=== PATIENT | male | born 1950 | race Caucasian/White ===

== ENCOUNTER 2017-06-14 16:05 | Emergency (ER) | payer MEDICARE, MEDICAID ==
[2017-06-14] MEDS ORDERED: Sodium Chloride 0.9% 10 ML Syringe FLUSH PRN (16:12)
--- NOTE | 2017-06-14 16:38 | CR ---
Clinical history: 67-year-old male injured left hand (tablesaw). Interpretation: 1. Pronounced soft tissue laceration middle 3 fingers. 2. Associated fragmentation terminal tuft distal phalanx index finger. 3. Complete transection and diastases proximal diaphysis distal phalanx adjacent middle finger (amput ation). 4. Nondisplaced avulsion corner fracture ulnar aspect base of the distal phalanx fourth (ring) finger . 5. 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 6. No sign of other fracture or dislocation left hand or wrist.
[2017-06-14] MEDS ORDERED: Diphtheria,Pertussis(Acell),Tetanus Vaccine 0.5 ML SDV IM ONE (16:46)
[2017-06-14] MEDS ORDERED: ceFAZolin 2 GM in Premix Bag 1 BAG IV ONE (16:54)
[2017-06-14 16:55] LABS: CHLORIDE,CL 103 mmol/L (101-111); SODIUM,NA 140 mmol/L (135-145)
--- NOTE | 2017-06-15 19:18 | EDM.PDOC ---
ED HPI GENERAL MEDICAL PROBLEM - General Chief Complaint: Laceration Stated Complaint: finger on left hand, cut by table saw Time Seen by Provider: 06/14/17 16:10 Source of Information: Reports: Patient, RN History Limitations: Reports: No Limitations - History of Present Illness INITIAL COMMENTS - FREE TEXT/NARRATIVE: Pt presents to the ER with c/o cutting the fingers of his left hand with a table saw. 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 He states he has some pain, but "not terrible". He states he does not go to the doctor, so has no past health history and denies taking any medications. Onset: Today, Sudden Right Hand Pain Score (Numeric/FACES): 7 - Related Data Allergies Allergy/AdvReac Type Severity Reaction Status Date / Time No Known Drug Allergies Allergy Mild Other Verified 06/14/17 16:09 Past Medical History - Past Health History Medical/Surgical History: Denies Medical/Surgical History Social & Family History - Tobacco Use Smoking Status *Q: Never Smoker - Caffeine Use Caffeine Use: Reports: Coffee - Recreational Drug Use Recreational Drug Use: No ED ROS GENERAL - Review of Systems Review Of Systems: ROS reveals no pertinent complaints other than HPI. ED EXAM, SKIN/RASH Exam: See Below Exam Limited By: No Limitations General Appearance: Alert, WD/WN, No Apparent Distress Eye Exam: Bilateral Eye: Normal Inspection Ears: Normal External Exam, Hearing Grossly Normal Nose: Normal Inspection Throat/Mouth: Normal Inspection, Normal Voice, No Airway Compromise Head: Atraumatic, Other Neck: Normal Inspection, Supple, Non-Tender, Full Range of Motion Respiratory/Chest: No Respiratory Distress, Lungs Clear, Normal Breath Sounds, No Accessory Muscle Use, Chest Non-Tender Cardiovascular: Normal Peripheral Pulses, Regular Rate, Rhythm, No Edema, No Gallop, No JVD, No Murmur, No Rub Peripheral Pulses: 2+: Radial (L), Radial (R) GI/Abdominal: Normal Bowel Sounds, Soft, Non-Tender (Male) Exam: Deferred Rectal (Males) Exam: Deferred Back Exam: Normal Inspection, Full Range of Motion Extremities: Other (See radiology report of left hand) Neurological: Alert, Oriented, Normal Cognition, Normal Gait, No Motor/Sensory Deficits Psychiatric: Normal Affect, Normal Mood Skin: Warm, Dry, Intact, Normal Color, No Rash Lymphatic: No Adenopathy Course - Vital Signs Last Recorded V/S: Last Vital Signs Temp 97.9 F 06/14/17 16:09 Pulse 88 06/14/17 16:41 Resp 18 06/14/17 16:41 BP 129/88 06/14/17 16:41 Pulse Ox 90 L 06/14/17 16:09 - Orders/Labs/Meds Labs: Laboratory Tests 06/14/17 06/14/17 Range/Units 16:29 16:29 WBC 11.9 H (5.0-10.0) 10^3/uL RBC 5.67 (4.6-6.2) 10^6/uL Hgb 16.6 (14.0-18.0) g/dL Hct 50.0 (40.0-54.0) % MCV 88.2 (80-100) fL MCH 29.3 (27.0-34.0) pg MCHC 33.2 (33.0-35.0) g/dL Plt Count 218 (150-450) 10^3/uL Neut % (Auto) 64.4 (42.2-75.2) % Lymph % (Auto) 22.0 (20.5-50.1) % [place] % (Auto) 11.4 H (2-8) % Eos % (Auto) 1.7 (1.0-3.0) % Baso % (Auto) 0.5 (0.0-1.0) % Sodium 140 (135-145) mmol/L Potassium 3.8 (3.6-5.0) mmol/L Chloride 103 (101-111) mmol/L Carbon Dioxide 26.0 (21.0-31.0) mmol/L Anion Gap 14.8 BUN 19 H (7-18) mg/dL Creatinine 1.1 (0.6-1.3) mg/dL Est Cr Clr Drug Dosing 69.41 mL/min Estimated GFR (MDRD) > 60 BUN/Creatinine Ratio 17.27 Glucose 113 H (74-105) mg/dL Calcium 9.0 (8.4-10.2) mg/dl Total Bilirubin 0.6 (0.2-1.0) mg/dL AST 23 (10-42) IU/L ALT 22 (10-60) IU/L Alkaline Phosphatase 89 (42-121) IU/L Total Protein 7.6 (6.7-8.2) g/dl Albumin 3.9 (3.2-5.5) g/dl Globulin 3.7 Albumin/Globulin Ratio 1.05 Meds: Medications Discontinued Medications Generic Name Dose Route Start Last Admin Trade Name Freq PRN Reason Stop Dose Admin Diphtheria/Tetanus/Acell Pertussis 0.5 ml 06/14/17 16:46 06/14/17 17:13 Adacel IM 06/14/17 16:47 0.5 ml .ONCE ONE Administration Cefazolin Sodium/Dextrose 2 gm 50 mls @ 100 mls/hr 06/14/17 16:54 06/14/17 17 :13 / Premix IV 06/14/17 17:23 100 mls/hr ONETIME ONE Administration Sodium Chloride 10 ml 06/14/17 16:12 06/14/17 16:37 Saline Flush FLUSH 10 ml ASDIRECTED PRN Administration Keep Vein Open - Radiology Interpretation Free Text/Narrative:: Left hand x-ray: 1. Pronounced soft tissue laceration middle 3 fingers 2. Associated fragmentation terminal tuft distal phalanx index finger 3. Complete transection and diastases proximal diaphysis distal phalanx adjacent middle finger (amputation) 4. Non displaced avulsion corner fracture ulnar aspect base of the distal phalanx fourth (ring) finger 5. 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 Laceration of left hand with tendon involvement including fingers Qualifiers: Encounter type: initial encounter Qualified Code(s): S61.412A - Laceration without foreign body of left hand, initial encounter; S61.219A - Laceration without foreign body of unspecified finger without damage to nail, initial encounter; S61.219A - Laceration without foreign body of unspecified finger without damage to nail, initial encounter; S66.922A - Laceration of unspecified muscle, fascia and tendon at wrist and hand level, left hand, initial encounter ; S66.922A - Laceration of unspecified muscle, fascia and tendon at wrist and hand level, left hand, initial encounter - Discharge Information Referrals: PCP,None [Primary Care Provider] - Forms: ED Department Discharge, Interfacility Transfer [facility]
== END 2017-06-14 17:28 ==
LOC: DL.ED 16:05
DX: S68.113A Complete traumatic metacarpophalangeal amputation of left middle finger, initial encounter (principal); S62.665A Nondisplaced fracture of distal phalanx of left ring finger, initial encounter for closed fracture; S66.922A Laceration of unspecified muscle, fascia and tendon at wrist and hand level, left hand, initial encounter; Z23 Encounter for immunization; W27.0XXA Contact with workbench tool, initial encounter
CPT/HCPCS: 36415; 73120; 80053; 85025; 90471; 90715; 99284; J0690; J7050; 99285

== ENCOUNTER 2020-07-24 12:21 | Emergency (ER) | payer MEDICAID, MEDICARE ==
--- NOTE | 2020-07-24 12:45 | EDM.PDOC ---
ED HPI GENERAL MEDICAL PROBLEM - General Chief Complaint: Neuro Symptoms/Deficits Stated Complaint: STROKE Time Seen by Provider: 07/24/20 12:45 Source of Information: Reports: Patient, RN, RN Notes Reviewed History Limitations: Reports: No Limitations - History of Present Illness INITIAL COMMENTS - FREE TEXT/NARRATIVE: Patient presents to the ED via personal vehicle from [facility] with complaints of right upper extremity weakness. The patient reports the weakness began two days ago and has maintained since that time. He has never experienced weakness like this before, and noticed it when he was unable to properly hold onto a pen. He denies history of stroke or cardiac events. He is currently taking HCTZ 25mg , Amiodarone 5mg, and Lisinopril 10mg. He denies fever, shaking chills, recent illness, headache, vision changes, chest pain/pressure, palpitations, shortness of breath, abdominal pain, nausea, vomiting, diarrhea, or dysuria. He denies a history of tobacco, alcohol, or recreational drug use. - Related Data Allergies Allergy/AdvReac Type Severity Reaction Status Date / Time No Known Drug Allergies Allergy Mild Other Verified 06/14/17 16:09 Home Meds: Home Meds Ibuprofen 400 mg PO Q6HR PRN 07/24/20 [History] amLODIPine [Norvasc] 5 mg PO DAILY 07/24/20 [History] hydroCHLOROthiazide [Hydrochlorothiazide] 25 mg PO DAILY 07/24/20 [History] lisinopriL [Lisinopril] 5 mg PO DAILY 07/24/20 [History] Past Medical History - Past Health History Medical/Surgical History: Denies Medical/Surgical History Social & Family History - Caffeine Use Caffeine Use: Reports: Coffee ED ROS GENERAL - Review of Systems Review Of Systems: Comprehensive ROS is negative, except as noted in HPI. ED EXAM, NEURO - Physical Exam Exam: See Below Exam Limited By: No Limitations General Appearance: Alert, WD/WN, No Apparent Distress Eye Exam: Bilateral Eye: EOMI, Normal Inspection, PERRL Ears: Normal External Exam, Normal Canal, Hearing Grossly Normal, Normal TMs Nose: Normal Inspection. No: Nasal Tenderness, Nasal Swelling, Nasal Drainage Throat/Mouth: Normal Inspection, Normal Lips. No: Normal Oropharynx (Dry mucous membranes), Normal Voice, No Airway Compromise Head Exam: Atraumatic, Normocephalic Neck: Normal Inspection, Supple, Non-Tender, Full Range of Motion. No: Lymphadenopathy (L), Lymphadenopathy (R) Respiratory/Chest: No Respiratory Distress, Lungs Clear, Normal Breath Sounds, No Accessory Muscle Use, Chest Non-Tender Cardiovascular: Normal Peripheral Pulses, No Edema, No Gallop, No JVD, No Murmur, No Rub, Extra Beats, Irregularly Irregular GI/Abdominal: Normal Bowel Sounds, Soft, Non-Tender, No Distention, No Mass, Pelvis Stable (Male) Exam: Deferred Rectal (Males) Exam: Deferred Neurological: Alert, Normal Mood/Affect, Normal Dorsiflexion, CN II-XII Intact, Normal Plantar Flexion, Normal Gait, Normal Reflexes, No Motor/Sensory Deficits, Oriented x 3, Withdraws to Pain, Straight Leg Raise (L), Straight Leg Raise (R). No: Abnormal Finger to Nose, Abnormal Sensation, Abnormal Light Touch, Abnormal Motor, Abnormal Pin Prick, Abn 2 Pt Discrimination, Tremor, Saddle Anesthesia Back Exam: Normal Inspection, Full Range of Motion. No: CVA Tenderness (L), CVA Tenderness (R) Extremities: Normal Inspection, Normal Range of Motion, Non-Tender, No Pedal Edema, Normal Capillary Refill Psychiatric: Normal Affect, Normal Mood Skin Exam: Warm, Dry, Intact, Other (Face flushed). No: Ecchymosis, Erythema, Mottled, Pallor, Petechiae #1 Interpretation EKG Date: 07/24/20 Time: 12:33 Rhythm: Other (Sinus arrhythmia) Rate (Beats/Min): 78 Ramer: LAD-Left Ramer Deviation P-Wave: Present QRS: Normal ST-T: Normal QT: Normal Comparison: NA - No Prior EKG EKG Interpretation Comments: SA; Multiform PVCs; No evidence of acute ischemia Course - Vital Signs Last Recorded V/S: Last Vital Signs Temp 97.7 F 07/24/20 12:31 Pulse 83 07/24/20 12:31 Resp 16 07/24/20 12:31 BP 136/69 07/24/20 12:31 Pulse Ox 90 L 07/24/20 12:31 - Orders/Labs/Meds Labs: Laboratory Tests 07/24/20 07/24/20 07/24/20 Range/Units 12:32 12:32 12:32 WBC 11.1 H (5.0-10.0) 10^3/uL RBC 5.54 (4.6-6.2) 10^6/uL Hgb 17.2 (14.0-18.0) g/dL Hct 49.3 (40.0-54.0) % MCV 89.0 (80-100) fL MCH 31.0 (27.0-34.0) pg MCHC 34.9 (33.0-35.0) g/dL Plt Count 193 (150-450) 10^3/uL Neut % (Auto) 71.1 (42.2-75.2) % Lymph % (Auto) 16.8 L (20.5-50.1) % [place] % (Auto) 10.3 H (2-8) % Eos % (Auto) 1.3 (1.0-3.0) % Baso % (Auto) 0.5 (0.0-1.0) % Sodium 137 (136-145) mmol/L Potassium 3.9 (3.5-5.1) mmol/L Chloride 98 (98-107) mmol/L Carbon Dioxide 26 (21-32) mmol/L Anion Gap 16.9 H (7-13) mEq/L BUN 15 (7-18) mg/dL Creatinine 1.06 (0.70-1.30) mg/dL Est Cr Clr Drug Dosing 69.06 mL/min Estimated GFR (MDRD) > 60 BUN/Creatinine Ratio 14.2 (No establ ref range) Glucose 107 H (74-99) mg/dL Calcium 8.8 (8.5-10.1) mg/dL Magnesium 2.1 (1.8-2.4) mg/dL Total Bilirubin 0.5 (0.2-1.0) mg/dL AST 20 (15-37) U/L ALT 26 (16-63) U/L Alkaline Phosphatase 101 (46-116) U/L Troponin I < 0.017 (0.000-0.056) ng/mL B-Natriuretic Peptide 96 (0-100) pg/ml Total Protein 8.3 H (6.4-8.2) g/dL Albumin 3.7 (3.4-5.0) g/dL Globulin 4.6 Albumin/Globulin Ratio 0.8 Urine Color Yellow (YELLOW) Urine Appearance Clear (CLEAR) Urine pH 5.5 (5.0-9.0) Ur Specific [place] 1.025 (1.005-1.030) Urine Protein Negative (NEGATIVE) Urine Glucose (UA) Negative (NEGATIVE) Urine Ketones Negative (NEGATIVE) Urine Occult Blood Negative (NEGATIVE) Urine Nitrite Negative (NEGATIVE) Urine Bilirubin Negative (NEGATIVE) Urine Urobilinogen 0.2 (0.2-1.0) mg/dL Ur Leukocyte Esterase Negative (NEGATIVE) - Re-Assessments/Exams Free Text/Narrative Re-Assessment/Exam: 07/25/20 CT head unremarkable for acute processes. Sinusitis observed on CT; patient continues to deny pain to the area and physical exam was unremarkable. Patient instructed to sleep with humidified air at night and avoid nasal sprays. Patient instructed to follow up with primary care provider in 3-5 days regarding today's visit, or sooner as warranted. Departure - Departure Time of Disposition: 13:50 Disposition: Home, Self-Care 01 Condition: Good Clinical Impression: Right sided weakness Sinusitis Qualifiers: Sinusitis location: unspecified location Chronicity: acute Recurrence: non- recurrent Qualified Code(s): J01.90 - Acute sinusitis, unspecified - Discharge Information *PRESCRIPTION DRUG MONITORING PROGRAM REVIEWED*: Not Applicable *COPY OF PRESCRIPTION DRUG MONITORING REPORT IN PATIENT ANT: Not Applicable Instructions: Sinusitis, Adult, [id number] Forms: ED Department Discharge Additional Instructions: 1.) Follow up with your primary care provider regarding today's visit; your CT scan was clear for acute neurological processes. 2.) You have inflammation within your sinuses, sleep with humidified air at night. 3.) Return to the emergency room with any progressive weakness, slurred speech, or facial droop. Sepsis Event Note (ED) - Evaluation Sepsis Screening Result: No Definite Risk
[2020-07-24 13:06] LABS: ANION GAP 16.9 mEq/L (7-13); CHLORIDE,CL 98 mmol/L (98-107); SODIUM,NA 137 mmol/L (136-145)
--- NOTE | 2020-07-24 13:24 | CT ---
EXAMINATION: Head wo Cont SEX: Male AGE: 70 years CLINICAL HISTORY: 70-year-old 300 pound male with 2 days of right extremity weakness; Slurred speech. No comparison CT or MRI exams of the head immediately available at this institution. Scan technique: Volume acquisition of data emergency unenhanced CT scan of the head and brain obtained with the patient lying supine on the Siemens multislice scanner [place], [place]. All data archived in the PACS system for storage, reformatting axial/sagittal/coronal planes and study (bone/soft tissue windows). Interpretation: 1. Dense opacification of the left maxillary antrum and ipsilateral ethmoid sinuses. Paranasal and mastoid sinuses symmetrically pneumatized and otherwise clear. No foreign bodies. 2. Uniformly thick bony calvarium. No sign of pathologic skeletal lesion, skull fracture, underlying brain contusion or acute extracerebral/intracranial epidural or subdural hematoma. Note: Subtle, focal, extracerebral increased signal frontal parietal region on the right (coronal #19; axial #20) suggesting remote or old subdural bleed. 3. *Scattered areas of decreased attenuation throughout the periventricular white matter, particularly right cerebral hemisphere, characteristic of microvascular ischemic disease (isolated lacunar infarct anterior limb internal capsule, basal ganglia on the right and ischemic changes ipsilateral external capsule). 4. No supratentorial or posterior fossa mass lesion. Underlying mirror-image normal ventricular system. 5. No sign of acute intracerebral, intraventricular or subarachnoid bleed. 6. Cerebellum and brainstem unremarkable. CONCLUSION: Sinusitis. Multi-infarct ischemic disease. No intracranial mass, hydrocephalus or acute intracranial bleed.
== END 2020-07-24 13:59 | disposition home or self-care (01) ==
LOC: DL.ED 12:21
DX: R53.1 Weakness (principal); J01.90 Acute sinusitis, unspecified; I49.8 Other specified cardiac arrhythmias
CPT/HCPCS: 36415; 70450; 80053; 81003; 83735; 83880; 84484; 85025; 93005; 99285-25

== ENCOUNTER 2023-07-21 15:18 | Emergency (ER) | payer OTHER, MEDICARE ==
[2023-07-21 15:47] LABS: BASOPHILS PERCENT AUTO 0.4 % (0.0-1.0); EOSINOPHILS PERCENT AUTO 0.4 % (1.0-3.0); HEMATOCRIT 51.5 % (40.0-54.0); HEMOGLOBIN 17.1 g/dL (14.0-18.0); LYMPHOCYTES PERCENT AUTO 6.8 % (20.5-50.1); MEAN CORPUSCULAR HGB CONC 33.2 g/dL (33.0-35.0); MEAN CORPUSCULAR VOLUME 90.4 fL (80-100); MONOCYTES PERCENT AUTO 10.6 % (2-8); NEUTROPHILS PERCENT AUTO 81.8 % (42.2-75.2); PLATELET COUNT,PLT 227 10^3/uL (150-450); WHITE BLOOD CELL COUNT,WBC 15.4 10^3/uL (5.0-10.0)
[2023-07-21] MEDS: Sodium Chloride 0.9% 1,000 ML IV ONE (15:59)
[2023-07-21] MEDS: Sodium Chloride 0.9% 10 ML Syringe FLUSH PRN (15:59)
[2023-07-21 16:10] LABS: ALBUMIN 3.1 g/dL (3.4-5.0); ANION GAP 12.6 mEq/L (7-13); BILIRUBIN TOTAL 0.4 mg/dL (0.2-1.0); BUN/CREATININE RATIO 16.9 (No establ ref range); C-REACTIVE PROTEIN 1.13 ng/dL (<=0.50); CREATININE 1.3 mg/dL (0.70-1.30); EST CRCL DRUG DOSING (CG) 53.9 mL/min; MAGNESIUM 1.8 mg/dL (1.8-2.4); POTASSIUM,K 3.6 mmol/L (3.5-5.1); TSH ULTRASENSITIVE 2.55 uIU/mL (0.36-3.74)
[2023-07-21 16:13] LABS: A/G RATIO 0.79
[2023-07-21 16:18] LABS: LACTIC ACID 1.8 mmol/L (0.4-2.0)
[2023-07-21 16:34] LABS: EOSINOPHILS PERCENT MAN 1 % (1-3); LYMPHOCYTES PERCENT MAN 9 % (20-50); MONOCYTES PERCENT MAN 5 % (2-8); SEG NEUTROPHILS PERCENT MAN 85 % (42-75)
[2023-07-21] MEDS: Iopamidol 755 Mg/ML 100 ML Bottle IVPUSH ONE (16:36)
[2023-07-21 16:48] LABS: CORONAVIRUS COVID-19 NAA NEGATIVE (NEGATIVE); INFLUENZA A NAA NEGATIVE (NEGATIVE); INFLUENZA B NAA NEGATIVE (NEGATIVE)
[2023-07-21 17:09] LABS: APPEARANCE,URINE CLEAR (CLEAR); BILIRUBIN,URINE NEGATIVE (NEGATIVE); COLOR,URINE YELLOW (YELLOW); GLUCOSE,URINE NEGATIVE (NEGATIVE); KETONES,URINE NEGATIVE (NEGATIVE); LEUKOCYTE ESTERASE,URINE NEGATIVE (NEGATIVE); NITRITE,URINE NEGATIVE (NEGATIVE); OCCULT BLOOD,URINE NEGATIVE (NEGATIVE); PROTEIN,URINE 100 (NEGATIVE); UROBILINOGEN,URINE 0.2 mg/dL (0.2-1.0)
[2023-07-21 17:18] LABS: BACTERIA,URINE FEW /HPF (0-FEW/HPF); EPITHELIAL CELLS,URINE RARE /HPF (NOT SEEN); MUCUS,URINE FEW /LPF (NOT SEEN); RBC,URINE 0-5 /HPF (0-5); WBC,URINE 0-5 /HPF (0-5/HPF)
[2023-07-21] MEDS: Rivaroxaban 10 MG Tab PO ONE (17:44)
[2023-07-21] MEDS: Diltiazem 25 MG/5 ML SDV IVPUSH ONE (17:44)
== END 2023-07-21 18:24 | disposition home or self-care (01) ==
LOC: DL.ED 15:18
DX: I48.92 Unspecified atrial flutter (principal); I10 Essential (primary) hypertension; Z79.899 Other long term (current) drug therapy; Z20.822 Contact with and (suspected) exposure to COVID-19; E66.01 Morbid (severe) obesity due to excess calories; Z68.41 Body mass index [BMI] 40.0-44.9, adult
CPT/HCPCS: 0240U; 36415; 71275; 80053; 81001; 83605; 83735; 83880; 84443; 84484; 85025; 86140; 93005; 93010; 96374; 99284; 99285-25; A9270-GY; J3490; J7030; Q9967

== ENCOUNTER 2023-07-31 17:54 | Emergency (ER) | payer OTHER ==
[2023-07-31] MEDS ORDERED: Sodium Chloride 0.9% 10 ML Syringe FLUSH PRN (18:10)
[2023-07-31 18:20] LABS: BASOPHILS PERCENT AUTO 0.2 % (0.0-1.0); HEMATOCRIT 52.2 % (40.0-54.0); HEMOGLOBIN 16.8 g/dL (14.0-18.0); LYMPHOCYTES PERCENT AUTO 4.5 % (20.5-50.1); MEAN CORPUSCULAR HEMOGLOBIN 29.7 pg (27.0-34.0); MEAN CORPUSCULAR HGB CONC 32.2 g/dL (33.0-35.0); MEAN CORPUSCULAR VOLUME 92.2 fL (80-100); MONOCYTES PERCENT AUTO 8.2 % (2-8); NEUTROPHILS PERCENT AUTO 87.1 % (42.2-75.2); PLATELET COUNT,PLT 198 10^3/uL (150-450); RED BLOOD CELL COUNT 5.66 10^6/uL (4.6-6.2); WHITE BLOOD CELL COUNT,WBC 21.1 10^3/uL (5.0-10.0)
[2023-07-31] MEDS ORDERED: Metoprolol Tartrate 5 MG/5 ML SDV IVPUSH ONE (18:23)
[2023-07-31] MEDS ORDERED: Digoxin 500 MCG/2 ML Amp IVPUSH ONE (18:33)
[2023-07-31 18:38] LABS: INR 1.2 (0.9-1.2); PROTHROMBIN TIME 12.7 SEC (9.0-12.0); PTT,PARTIAL THROMBOPLSTIN TIME 28.2 SEC (22.0-34.0)
[2023-07-31 18:41] LABS: ALBUMIN 3.1 g/dL (3.4-5.0); ANION GAP 13.4 mEq/L (7-13); BILIRUBIN TOTAL 0.6 mg/dL (0.2-1.0); BUN/CREATININE RATIO 11.9 (No establ ref range); C-REACTIVE PROTEIN 0.75 ng/dL (<=0.50); CALCIUM 8.7 mg/dL (8.5-10.1); CREATININE 2.27 mg/dL (0.70-1.30); EST CRCL DRUG DOSING (CG) 30.87 mL/min; MAGNESIUM 1.6 mg/dL (1.8-2.4); POTASSIUM,K 3.4 mmol/L (3.5-5.1); PROTEIN TOTAL,TP 6.6 g/dL (6.4-8.2)
[2023-07-31 18:42] LABS: A/G RATIO 0.89
[2023-07-31 18:45] LABS: LACTIC ACID 3.8 mmol/L (0.4-2.0)
[2023-07-31] MEDS ORDERED: Sodium Chloride 0.9% 1,000 ML IV ONE (18:46)
[2023-07-31] MEDS ORDERED: Heparin Sodium 5,000 Units/ML Vial IVPUSH ONE (18:55)
[2023-07-31] MEDS ORDERED: Heparin Sodium/0.45% NaCl 25,000 UNITS/500 ML BAG IV SCH (19:00)
== END 2023-07-31 21:20 ==
LOC: DL.ED 17:54
DX: I21.4 Non-ST elevation (NSTEMI) myocardial infarction (principal); I48.91 Unspecified atrial fibrillation; I10 Essential (primary) hypertension; Z79.899 Other long term (current) drug therapy
CPT/HCPCS: 36415; 71045; 80053; 83605; 83735; 83880; 84484; 85025; 85610; 85730; 86140; 93005; 93010; 96365; 96366; 96375; 99285; 99285-25; J1160; J1644; J3490; J7030

== ENCOUNTER 2024-11-03 09:08 | Emergency (ER) | payer OTHER, MEDICARE ==
[2024-11-03] MEDS ORDERED: Sodium Chloride 0.9% 10 ML Syringe FLUSH PRN ×2 (09:21)
[2024-11-03 09:28] LABS: BASOPHILS PERCENT AUTO 0.2 % (0.0-1.0); EOSINOPHILS PERCENT AUTO 1.1 % (1.0-3.0); HEMATOCRIT 48.7 % (40.0-54.0); HEMOGLOBIN 15.4 g/dL (14.0-18.0); LYMPHOCYTES PERCENT AUTO 18.9 % (20.5-50.1); MEAN CORPUSCULAR HEMOGLOBIN 28.4 pg (27.0-34.0); MEAN CORPUSCULAR HGB CONC 31.6 g/dL (33.0-35.0); MEAN CORPUSCULAR VOLUME 89.9 fL (80-100); MONOCYTES PERCENT AUTO 12.1 % (2-8); NEUTROPHILS PERCENT AUTO 67.7 % (42.2-75.2); PLATELET COUNT,PLT 186 10^3/uL (150-450); RED BLOOD CELL COUNT 5.42 10^6/uL (4.6-6.2); WHITE BLOOD CELL COUNT,WBC 14.3 10^3/uL (5.0-10.0)
[2024-11-03 09:37] LABS: INR 1.8 (0.9-1.2); PROTHROMBIN TIME 18.3 SEC (9.0-12.0)
[2024-11-03] MEDS: Diltiazem 25 MG/5 ML SDV IVPUSH ONE ×2 (09:37→10:45)
[2024-11-03] MEDS: Diltiazem 125 MG in Sodium Chloride 0.9% 100 ML IV SCH (09:42)
[2024-11-03 09:47] LABS: ALANINE AMINOTRANSFERASE,ALT 20 U/L (16-63); ALBUMIN 3.1 g/dL (3.4-5.0); ALKALINE PHOSPHATASE 108 U/L (46-116); ANION GAP 13.2 mEq/L (7-13); ASPARTATE AMNIOTRANSFERASE,AST 12 U/L (15-37); BILIRUBIN TOTAL 0.5 mg/dL (0.2-1.0); BLOOD UREA NITROGEN,BUN 24 mg/dL (7-18); BUN/CREATININE RATIO 14.8 (No establ ref range); CALCIUM 9.1 mg/dL (8.5-10.1); CARBON DIOXIDE,CO2 29 mmol/L (21-32); CHLORIDE,CL 105 mmol/L (98-107); CREATININE 1.62 mg/dL (0.70-1.30); GLUCOSE RANDOM 143 mg/dL (70-99); POTASSIUM,K 4.2 mmol/L (3.5-5.1); PROTEIN TOTAL,TP 6.9 g/dL (6.4-8.2); SODIUM,NA 143 mmol/L (136-145)
[2024-11-03 09:49] LABS: A/G RATIO 0.82; ESTIMATED GFR 44 mL/min (>=60)
[2024-11-03] MEDS: Sodium Chloride 0.9% 500 ML IV SCH (11:12)
[2024-11-03] MEDS: Propofol 200 MG/20 ML SDV IVPUSH ONE (11:15)
== END 2024-11-03 12:04 | disposition home or self-care (01) ==
LOC: DL.ED 09:08
DX: I48.91 Unspecified atrial fibrillation (principal); Z79.899 Other long term (current) drug therapy
CPT/HCPCS: 36415; 71045; 80053; 84484; 85025; 85610; 92960; 93005; 93010; 96365; 96366; 99285; J2704; J3490; J7030

== ENCOUNTER 2024-11-25 10:09 | Emergency (ER) | payer MEDICARE, OTHER ==
[2024-11-25 10:53] LABS: BASOPHILS PERCENT AUTO 0.2 % (0.0-1.0); EOSINOPHILS PERCENT AUTO 1.5 % (1.0-3.0); HEMATOCRIT 46.5 % (40.0-54.0); HEMOGLOBIN 14.8 g/dL (14.0-18.0); LYMPHOCYTES PERCENT AUTO 14.4 % (20.5-50.1); MEAN CORPUSCULAR HEMOGLOBIN 28.2 pg (27.0-34.0); MEAN CORPUSCULAR HGB CONC 31.8 g/dL (33.0-35.0); MEAN CORPUSCULAR VOLUME 88.7 fL (80-100); MONOCYTES PERCENT AUTO 9.3 % (2-8); NEUTROPHILS PERCENT AUTO 74.6 % (42.2-75.2); PLATELET COUNT,PLT 203 10^3/uL (150-450); RED BLOOD CELL COUNT 5.24 10^6/uL (4.6-6.2); WHITE BLOOD CELL COUNT,WBC 12.2 10^3/uL (5.0-10.0)
[2024-11-25] MEDS: Amiodarone 150 MG/100 ML 150 MG in Premix Bag 1 BAG IV ONE (11:07)
[2024-11-25 11:09] LABS: ANION GAP 14.9 mEq/L (7-13); BLOOD UREA NITROGEN,BUN 18 mg/dL (7-18); CARBON DIOXIDE,CO2 29 mmol/L (21-32); CHLORIDE,CL 104 mmol/L (98-107); CREATININE 1.27 mg/dL (0.70-1.30); ESTIMATED GFR 59 mL/min (>=60); GLUCOSE RANDOM 206 mg/dL (70-99); MAGNESIUM 1.9 mg/dL (1.8-2.4); POTASSIUM,K 3.9 mmol/L (3.5-5.1); SODIUM,NA 144 mmol/L (136-145)
[2024-11-25] MEDS: fentaNYL 100 MCG/2 ML SDV IVPUSH ONE (11:12)
[2024-11-25] MEDS: Amiodarone 360 MG/200 ML 360 MG/200 ML BAG IV ONE (11:16)
[2024-11-25] MEDS: fentaNYL 100 MCG/2 ML SDV ONE (11:43)
[2024-11-25] MEDS: Sodium Chloride 0.9% 1,000 ML IV ONE (12:07)
[2024-11-25] MEDS: Magnesium Sulf/Wat 2 GM/50 mL 2 GM in Premix Bag 1 BAG IV ONE (12:35)
== END 2024-11-25 14:15 ==
LOC: DL.ED 10:09
DX: I48.91 Unspecified atrial fibrillation (principal); Z79.899 Other long term (current) drug therapy; Z79.1 Long term (current) use of non-steroidal anti-inflammatories (NSAID)
CPT/HCPCS: 36415; 80048; 83605; 83735; 84484; 85025; 92960; 93010; 96365; 96366; 96368; 96375; 99285; 99291; J0283; J3010; J3475; J7030

== ENCOUNTER 2025-02-26 21:49 | Observation (INO) | payer MEDICARE, OTHER ==
[2025-02-26] MEDS ORDERED: Sodium Chloride 0.9% 10 ML Syringe FLUSH PRN (22:30)
[2025-02-26 22:57] LABS: BASOPHILS PERCENT AUTO 0.4 % (0.0-1.0); EOSINOPHILS PERCENT AUTO 1.0 % (1.0-3.0); LYMPHOCYTES PERCENT AUTO 13.6 % (20.5-50.1); MONOCYTES PERCENT AUTO 12.1 % (2-8); NEUTROPHILS PERCENT AUTO 72.9 % (42.2-75.2); PLATELET COUNT,PLT 228 10^3/uL (150-450); RED BLOOD CELL COUNT 5.74 10^6/uL (4.6-6.2); WHITE BLOOD CELL COUNT,WBC 13.9 10^3/uL (5.0-10.0)
[2025-02-26 23:10] LABS: APPEARANCE,URINE CLEAR (CLEAR); GLUCOSE,URINE 500 (NEGATIVE); OCCULT BLOOD,URINE NEGATIVE (NEGATIVE)
[2025-02-26 23:16] LABS: INR 1.0 (0.9-1.2); PTT,PARTIAL THROMBOPLSTIN TIME 30.9 SEC (22.0-34.0)
[2025-02-26 23:17] LABS: B-TYPE NATRIURETIC PEPTIDE,BNP 180.0 pg/ml (0-100)
[2025-02-26 23:20] LABS: ALANINE AMINOTRANSFERASE,ALT 15.0 U/L (16-63); ASPARTATE AMNIOTRANSFERASE,AST 11.0 U/L (15-37); BILIRUBIN TOTAL 0.3 mg/dL (0.2-1.0); BLOOD UREA NITROGEN,BUN 23.0 mg/dL (7-18); CARBON DIOXIDE,CO2 32.0 mmol/L (21-32); CHLORIDE,CL 105.0 mmol/L (98-107); CREATININE 1.48 mg/dL (0.70-1.30); EST CRCL DRUG DOSING (CG) 46.64 mL/min; GLUCOSE RANDOM 108.0 mg/dL (70-99); POTASSIUM,K 4.0 mmol/L (3.5-5.1); PROTEIN TOTAL,TP 7.0 g/dL (6.4-8.2); SODIUM,NA 142.0 mmol/L (136-145)
[2025-02-26 23:21] LABS: LACTIC ACID 1.2 mmol/L (0.4-2.0)
[2025-02-26 23:22] LABS: A/G RATIO 0.79; ESTIMATED GFR 49.0 mL/min (>=60)
[2025-02-26 23:29] LABS: EPITHELIAL CELLS,URINE FEW /HPF (NOT SEEN)
[2025-02-27] MEDS ORDERED: Propofol 200 MG/20 ML SDV IV ONE (00:11)
[2025-02-27] MEDS: fentaNYL 100 MCG/2 ML SDV IVPUSH ONE (00:51)
[2025-02-27] MEDS: Midazolam 1 MG/ML 2 ML SDV IVPUSH ONE (00:52)
[2025-02-27 06:12] LABS: BASOPHILS PERCENT AUTO 0.2 % (0.0-1.0); EOSINOPHILS PERCENT AUTO 1.4 % (1.0-3.0); LYMPHOCYTES PERCENT AUTO 18.3 % (20.5-50.1); MONOCYTES PERCENT AUTO 12.4 % (2-8); NEUTROPHILS PERCENT AUTO 67.7 % (42.2-75.2); PLATELET COUNT,PLT 191 10^3/uL (150-450); RED BLOOD CELL COUNT 5.29 10^6/uL (4.6-6.2); WHITE BLOOD CELL COUNT,WBC 12.5 10^3/uL (5.0-10.0)
[2025-02-27 06:40] LABS: ALANINE AMINOTRANSFERASE,ALT 16.0 U/L (16-63); ASPARTATE AMNIOTRANSFERASE,AST 10.0 U/L (15-37); BILIRUBIN TOTAL 0.4 mg/dL (0.2-1.0); BLOOD UREA NITROGEN,BUN 22.0 mg/dL (7-18); CARBON DIOXIDE,CO2 35.0 mmol/L (21-32); CREATININE 1.44 mg/dL (0.70-1.30); EST CRCL DRUG DOSING (CG) 47.93 mL/min; GLUCOSE RANDOM 103.0 mg/dL (70-99); PROTEIN TOTAL,TP 6.3 g/dL (6.4-8.2); T4 FREE 1.2 ng/dL (0.76-1.46); TSH ULTRASENSITIVE 2.09 uIU/mL (0.36-3.74)
[2025-02-27 06:46] LABS: CHLORIDE,CL 107.0 mmol/L (98-107); POTASSIUM,K 3.8 mmol/L (3.5-5.1); SODIUM,NA 141.0 mmol/L (136-145)
[2025-02-27 06:51] LABS: A/G RATIO 0.75; ESTIMATED GFR 51.0 mL/min (>=60)
== END 2025-02-27 09:25 | disposition home or self-care (01) ==
LOC: DL.ED 21:49 → DL.MS 02-27 01:42
PROVIDERS: ADMIT Internal Medicine; ATTEND Internal Medicine
DX: J96.01 Acute respiratory failure with hypoxia (principal); G47.33 Obstructive sleep apnea (adult) (pediatric); I48.91 Unspecified atrial fibrillation; I10 Essential (primary) hypertension; E11.9 Type 2 diabetes mellitus without complications; I25.10 Atherosclerotic heart disease of native coronary artery without angina pectoris; Z95.5 Presence of coronary angioplasty implant and graft; Z79.01 Long term (current) use of anticoagulants; Z79.899 Other long term (current) drug therapy
CPT/HCPCS: 36415; 71045; 80053; 81001; 83605; 83880; 84439; 84443; 84484; 85025; 85610; 85730; 93005; 96374; 96375; 99223; 99285; G0378; J2250; J2310; J3010